=== PATIENT | female | born 1950 | race Caucasian/White ===

== ENCOUNTER → 2022-06-18 | Outpatient (CLI) | payer MEDICARE | END | disposition home or self-care (01) | LOC: RAH 14:16 | PROVIDERS: ATTEND Surgery Vascular Surgery | DX: C34.91 Malignant neoplasm of unspecified part of right bronchus or lung (principal) | CPT/HCPCS: 71250 ==

== ENCOUNTER 2024-07-07 09:52 | Inpatient (IN) | payer MEDICARE ==
[~2024-07-07] VITALS: Ht 165.1 cm; Wt 86.4 kg
--- NOTE | 2024-07-07 10:15 | EKG ---
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
[2024-07-07 11:02] LABS: BASOPHILS # (AUTO) 0.04 K/uL (0.00-0.20); BASOPHILS % (AUTO) 0.8 % (0.0-5.0); EOSINOPHILS # (AUTO) 0.16 K/uL (0.00-0.70); HEMATOCRIT 40.6 % (36-48); IMMATURE GRANULOCYTE ABSOLUTE 0.02 K/uL (0-1); LYMPHOCYTES # (AUTO) 0.5 K/uL (1.0-4.8); LYMPHOCYTES % (AUTO) 9.1 % (21.0-51.0); MEAN CORPUSCULAR HEMOGLOBIN 33.5 pg (27.0-33.0); MEAN CORPUSCULAR HGB CONC 33.3 g/dL (32.0-36.0); MEAN CORPUSCULAR VOLUME 100.7 fL (79-99); MONOCYTES # (AUTO) 0.5 K/uL (0.1-1.0); MONOCYTES % (AUTO) 8.6 % (3.0-13.0); NEUTROPHILS # (AUTO) 4.1 K/uL (1.8-7.7); NEUTROPHILS % (AUTO) 78.1 % (40.0-77.0); PLATELET COUNT (AUTO) 319 K/uL (130-400); RED BLOOD CELL COUNT(AUTO) 4.03 MIL/uL (4.00-5.50); WHITE BLOOD COUNT (AUTO) 5.3 K/uL (4.8-10.8)
--- NOTE | 2024-07-07 11:05 | HMCIMG ---
CT HEAD/BRAIN W/O CONTRAST HISTORY: Altered mental status COMPARISON: None TECHNIQUE: Multiple sequential axial images of the head were obtained from the base of the skull through vertex. Patient was not given contrast through intravenous route. FINDINGS: The ventricles and extraventricular CSF spaces are dilated consistent with cerebral atrophy. Nonspecific white matter changes seen. There is no midline shift, mass effect or herniation. No acute intracranial bleed is seen. Visualized portion of the paranasal sinuses are grossly within normal limits. IMPRESSION: 1. No acute intracranial bleed is seen. 2. Atrophy with white matter changes. CT was performed with one or more following dose reduction techniques: automated exposure control, adjustment of the mA and kv according to patient's size, or use of a iterative reconstruction technique.
[2024-07-07 11:14] LABS: CREATININE 0.8 mg/dL (0.5-1.0); POTASSIUM 3.6 mmol/L (3.5-5.1)
[2024-07-07 11:15] LABS: INR 0.97 (0.85-1.15); PROTHROMBIN TIME 10.9 SEC (9.6-11.6)
[2024-07-07 11:17] LABS: PARTIAL THROMBOPLASTIN TIME 28.6 SEC (26.3-35.5)
[2024-07-07 11:19] LABS: MAGNESIUM 2.3 mg/dL (1.80-2.40)
--- NOTE | 2024-07-07 11:21 | HMCIMG ---
CHEST 1VW HISTORY: Weakness COMPARISON: None FINDINGS: A frontal projection of the chest was obtained. Right upper lung pulmonary infiltrates are seen. There are interstitial fibrosis. Right perihilar subsegmental atelectasis changes are seen. The heart is borderline enlarged. All the lines and tubes are again seen in place. No evidence of aortic calcification is seen. IMPRESSION: 1. Findings as described above.
--- NOTE | 2024-07-07 11:41 | NUR ---
PT MADE AWARE OF UA PENDING, UA CUP PROVIDED , PT ASSISTED TO RR BUT UNABLE TO PROVIDE SAMPLE
[2024-07-07 11:58] LABS: B-TYPE NATRIURETIC PEPTIDE 50 pg/mL (0-100)
--- NOTE | 2024-07-07 13:09 | ERN ---
General Chief Complaint: Altered Mental Status Stated Complaint: AMS Time Seen by MD: 09:56 Source: patient History of Present Illness Initial Comments PATIENT IS A 73-YEAR-OLD FEMALE COMING IN TO BE EVALUATED FOR ALTERED MENTAL STATUS. PER FAMILY MEMBERS PATIENT STARTED HAVING BOUTS OF FORGETFULNESS FOR ABOUT ONE WEEK. DAUGHTER WAS CONCERNED BECAUSE PATIENT HAS A NEOPLASTIC HISTORY. Allergies: Coded Allergies: iodine (Unverified Allergy, Unknown, 07/07/24) Past Medical History Past Medical History: Hypertension Medical History Other: RIGHT LUNG CANCER Past Surgical History: Other Surgical History Other: CAROTID STENT ROS Dictation CONSTITUTIONAL: NO CHILLS, NO FEVER, NO WEAKNESS, NO DIAPHORESIS, NO MALAISE. HEAD/FACE: NO SIGNS OF TRAUMA. EENT: NO EYE PAIN, NO BLURRED VISION, NO TEARING, NO DOUBLE VISION, NO EAR PAIN, NO EAR DISCHARGE, NO NOSE PAIN, NO NASAL CONGESTION, NO THROAT PAIN, NO THROAT SWELLING, NO MOUTH PAIN. RESPIRATORY: NO COUGH, NO ORTHOPNEA, NO SOB, NO STRIDOR, NO WHEEZING. CARDIOVASCULAR: NO CHEST PAIN, NO EDEMA, NO PALPITATIONS, NO SYNCOPE. GASTROINTESTINAL/ABDOMINAL: NO ABDOMINAL PAIN, NO CONSTIPATION, NO DIARRHEA, NO NAUSEA, NO VOMITING. GENITOURINARY: NO ABNORMAL DISCHARGE, NO DYSURIA, NO FREQUENT URINATION, NO HEMATURIA. NO COMPLAINTS OF PAIN IN THE GENITALS. MUSCULOSKELETAL: NO BACK PAIN, NO GOUT, NO JOINT PAIN, NO JOINT SWELLING, NO MUSCLE PAIN, NO MUSCLE STIFFNESS, NO NECK PAIN. INTEGUMENTARY: NO CHANGE IN COLOR, NO CHANGE IN HAIR/NAILS, NO DRYNESS, NO LESION, NO LUMPS, NO RASH. NEUROLOGICAL/PSYCH: NO ANXIETY, NOT DEPRESSED, NO EMOTIONAL PROBLEM, NO HEADACHE, NO NUMBNESS, NO PRE-EXISTING DEFICIT, NO HISTORY OF SEIZURES, NO TREMORS, NO WEAKNESS. HEMATOLOGIC/LYMPHATIC: NOT ANEMIC, NO HISTORY OF BLOOD CLOTS, NO APPARENT BLEEDING, NO BRUISING, GLANDS NOT SWOLLEN. ALL SYSTEMS NEGATIVE, EXCEPT NOTED. Physical Exam Physical Exam Dictation VITAL SIGNS: REVIEWED. GENERAL APPEARANCE: ALERT, ORIENTED X3, NO ACUTE DISTRESS, OBESE. HEAD AND FACE: NON-TRAUMATIC. EYES: PERRL, PINK CONJUNCTIVAS, EYELID NO TRAUMA, ANTERIOR CHAMBER CLEAR. EARS: PINNAS INTACT AND NO SIGNS OF TRAUMA OR ERYTHEMA. EAR CANALS CLEAR AND NO DISCHARGE. TMS NO ERYTHEMA. NOSE: NO DISCHARGE, NO BLEEDING. OROPHARYNX: MOUTH NORMAL, TEETH NO CARIES, TONGUE PINK. PHARYNX CLEAR, NO ERYTHEMA. TONSILS NO EXUDATES, NO ABSCESSES NOTED. MUCOUS MEMBRANE MOIST. NECK: SUPPLE, NON-TENDER, NO THYROMEGALY, NO MASSES, NO JVD, NO BRUITS. BREAST: DEFERRED. CHEST: NO TENDERNESS, NO CREPITUS, NO PARADOXICAL MOVEMENT, NO RETRACTIONS. LUNGS: CLEAR, WELL-VENTILATED, SYMMETRIC, NO RALES, NO WHEEZING, NO RHONCHI, NO STRIDOR, GOOD BREATH SOUNDS BILATERALLY. HEART: REGULAR RATE, REGULAR RHYTHM, NO MURMUR, NO GALLOPS. VASCULAR: NO PERIPHERAL EDEMA. ABDOMEN: SOFT, POSITIVE BOWEL SOUNDS, NONDISTENDED, NO GUARDING, NONTENDER, NO REBOUND, NO MASSES NO HEPATOMEGALY, NO SPLENOMEGALY, NO DURAN'S SIGN, NO HERNIAS. RECTAL: DEFERRED. GENITAL: DEFERRED. NEUROLOGICAL: NORMAL SPEECH, GROSS MOTOR FUNCTION INTACT, GROSS SENSORY FUNCTION INTACT. MUSCULOSKELETAL: NECK NONTENDER, FULL RANGE OF MOTION, BACK NONTENDER, FULL RANGE OF MOTION. EXTREMITIES: NONTENDER, FULL RANGE OF MOTION. SKIN: COLOR PINK, DRY, NO TURGOR, NO RASH, NO LACERATIONS, NO ABRASIONS, NO CONTUSIONS. LYMPHATICS: DEFERRED. Results Laboratory and Microbiology Lab and Micro Result Laboratory Tests Test 07/07/24 10:39 07/07/24 12:30 White Blood Count 5.3 K/uL (4.8-10.8) Red Blood Count 4.03 MIL/uL (4.00-5.50) Hemoglobin 13.5 g/dL (12.0-16.0) Hematocrit 40.6 % (36-48) Mean Corpuscular Volume 100.7 fL (79-99) H Mean Corpuscular Hemoglobin 33.5 pg (27.0-33.0) H Mean Corpuscular Hemoglobin Concent 33.3 g/dL (32.0-36.0) Red Cell Distribution Width 14.0 % (11.0-15.5) Platelet Count 319 K/uL (130-400) Mean Platelet Volume 9.7 fL (7.5-10.5) Immature Granulocyte % (Auto) 0.4 % (0-1) Neutrophils (%) (Auto) 78.1 % (40.0-77.0) H Lymphocytes (%) (Auto) 9.1 % (21.0-51.0) L Monocytes (%) (Auto) 8.6 % (3.0-13.0) Eosinophils (%) (Auto) 3.0 % (0.0-8.0) Basophils (%) (Auto) 0.8 % (0.0-5.0) Neutrophils # (Auto) 4.1 K/uL (1.8-7.7) Lymphocytes # (Auto) 0.5 K/uL (1.0-4.8) L Monocytes # (Auto) 0.5 K/uL (0.1-1.0) Eosinophils # (Auto) 0.16 K/uL (0.00-0.70) Basophils # (Auto) 0.04 K/uL (0.00-0.20) Absolute Immature Granulocyte (auto 0.02 K/uL (0-1) Nucleated Red Blood Cells 0.0 % (0.0-0.19) White Cell Morphology Comment See comments Prothrombin Time 10.9 SEC (9.6-11.6) Prothromb Time International Ratio 0.97 (0.85-1.15) Activated Partial Thromboplast Time 28.6 SEC (26.3-35.5) Sodium Level 139 mmol/L (136-145) Potassium Level 3.6 mmol/L (3.5-5.1) Chloride Level 102 mmol/L (101-111) Carbon Dioxide Level 31 mmol/L (21-32) Blood Urea Nitrogen 6 mg/dL (7-18) L Creatinine 0.8 mg/dL (0.5-1.0) Glomerular Filtration Rate Calc 77 mL/min (>90) Random Glucose 128 mg/dL (70-105) H Total Calcium 9.1 mg/dL (8.5-10.1) Magnesium Level 2.30 mg/dL (1.80-2.40) Total Creatine Kinase 41 U/L (21-232) Troponin I High Sensitivity 5 ng/L (4-50) B-Type Natriuretic Peptide 50 pg/mL (0-100) Urine Color LIGHT-YELLOW (YELLOW) Urine Appearance CLEAR (CLEAR) Urine pH 5.5 (5.0-8.0) Urine Specific Daphne 1.007 (1.001-1.031) Urine Protein NEGATIVE mg/dL (NEGATIVE) Urine Glucose (UA) NEGATIVE mg/dL (NEGATIVE) Urine Ketones 10 mg/dL (NEGATIVE) H Urine Occult Blood +- (TRACE) (NEGATIVE) H Urine Nitrate NEGATIVE (NEGATIVE) Urine Bilirubin NEGATIVE mg/dL (NEGATIVE) Urine Urobilinogen 0.2 mg/dL (0.2-1.0) Urine Leukocyte Esterase NEGATIVE Jennifer/uL Urine RBC 0-1 /HPF (0-1) Urine WBC 2-5 /HPF (0-1) H Urine Squamous Epithelial Cells RARE /HPF (0-2) Urine Bacteria RARE /HPF (None Seen) Urine Opiates Screen NEGATIVE (NEGATIVE) Urine Barbiturates Screen NEGATIVE (NEGATIVE) Urine Phencyclidine Screen NEGATIVE (NEGATIVE) Urine Amphetamines Screen NEGATIVE (NEGATIVE) Urine Benzodiazepines Screen NEGATIVE (NEGATIVE) Urine Cocaine Screen NEGATIVE (NEGATIVE) Urine Marijuana (THC) Screen NEGATIVE (NEGATIVE) Labs Reviewed?: Yes EKG/XRAY/US/CT/MRI EKG Comment 07/07/2024 TIME 10:03 A.M. VENTRICULAR RATE 73 SINUS RHYTHM DC [address] WAVE ELEVATION OR DEPRESSION X-RAY Comment [address] [place] [address] [id number] IMAGING REPORT Signed PATIENT: HOSSEIN YUAN MR#: [id number] : 1950 SEX: F AGE: 73 LOCATION: [facility] ORDER 1006 STATUS: [facility] REPORT#: [id number] SERVICE 1004 REASON: WEAKNESS ORDERING PHYSICIAN: NADYA GOULD MD PROCEDURE: CXR1VW - CHEST 1VW CHEST 1VW HISTORY: Weakness COMPARISON: None FINDINGS: A frontal projection of the chest was obtained. Right upper lung pulmonary infiltrates are seen. There are interstitial fibrosis. Right perihilar subsegmental atelectasis changes are seen. The heart is borderline enlarged. All the lines and tubes are again seen in place. No evidence of aortic calcification is seen. IMPRESSION: 1. Findings as described above. DICTATED BY: MARSHAL TATUM MD DATE: 07/07/24 1118 ELECTRONICALLY SIGNED BY: MARSHAL TATUM MD DATE: 07/07/[address] Scan Comment [address] [id number] IMAGING REPORT Signed PATIENT: HOSSEIN YUAN MR#: [id number] : 1950 SEX: F AGE: 73 LOCATION: [facility] ORDER 18 STATUS: REG ER REPORT#: [id number] SERVICE 17 REASON: AMS ORDERING PHYSICIAN: NADYA GOULD MD PROCEDURE: HEAD WO - CT HEAD/BRAIN W/O CONTRAST CT HEAD/BRAIN W/O CONTRAST HISTORY: Altered mental status COMPARISON: None TECHNIQUE: Multiple sequential axial images of the head were obtained from the base of the skull through vertex. Patient was not given contrast through intravenous route. FINDINGS: The ventricles and extraventricular CSF spaces are dilated consistent with cerebral atrophy. Nonspecific white matter changes seen. There is no midline shift, mass effect or herniation. No acute intracranial bleed is seen. Visualized portion of the paranasal sinuses are grossly within normal limits. IMPRESSION: 1. No acute intracranial bleed is seen. 2. Atrophy with white matter changes. CT was performed with one or more following dose reduction techniques: automated exposure control, adjustment of the mA and kv according to patient's size, or use of a iterative reconstruction technique. DICTATED BY: MARSHAL TATUM MD DATE: 07/07/241100 ELECTRONICALLY SIGNED BY: MARSHAL TATUM MD DATE: 07/07/241104 [facility] MDM: DIFFERENTIAL DIAGNOSIS: RIGHT LUNG PNEUMONIA, ALTERED MENTAL STATUS, ACUTE PSYCHOSIS RATIONALE: TESTS CONSIDERED AND ORDERED SECONDARY TO SHARED DECISION MAKING INCLUDE: LABS, ECG AND RADIOLOGY PREVIOUS OUTSIDE RECORDS REVIEWED: OLD ER VISITS. RISK OF COMPLICATION AND/OR MORBIDITY OR MORTALITY OF PATIENT MANAGEMENT: NONE MEDICATIONS-PER MEDICATION RECONCILIATION NEED FOR HOSPITALIZATION: PATIENT DOES MEET CRITERIA FOR HOSPITALIZATION. NEED FOR EMERGENCY MAJOR/MINOR SURGERY: NO THERE ARE NO SOCIAL CONCERNS WITH THIS PATIENT. PRESCRIPTION DRUG MANAGEMENT PRESCRIPTIONS WILL INCLUDE SYMPTOMATIC CARE PATIENT'S PRIOR EXTERNAL MEDICAL RECORDS FROM OTHER ER VISITS WERE REVIEWED BY ME INDICATED. PRIOR TESTING AND RESULTS FROM PREVIOUS VISITS WERE REVIEWED. PRIOR TESTS WERE TAKEN INTO ACCOUNT WITH MEDICAL DECISION MAKING AND RESOURCE UTILIZATION, INDEPENDENT HISTORIAN/HISTORIANS WERE USED TO OBTAIN COMPLETE MEDICAL HISTORY. I INDEPENDENTLY INTERPRETED THE TEST THAT WERE PERFORMED, RESULTS WERE REVIEWED BY ME AND CONSIDERED FINDINGS ON RADIOLOGY IF ORDERED. MEDICAL MANAGEMENT AND EXAMINATION INTERPRETATION DISCUSSIONS WERE HAD BY ME WITH OTHER QUALIFIED HEALTHCARE PROFESSIONALS INDICATED FOR THE PATIENT'S CARE. PATIENT WILL BE ADMITTED UNDER THE CARE OF HOSPITALIST GROUP FOR ONGOING MANAGEMENT OF ACUTE PSYCHOSIS. ED Course Orders Procedure Category Date Status Time Cbc With Differential LAB 07/07/24 Complete 10:04 Prothrombin Time With LAB 07/07/24 Complete INR 10:04 B-Type Natriuretic LAB 07/07/24 Complete Peptide 10:04 Chest 1vw RAD 07/07/24 Resulted 10:04 12 Lead Ekg Tracing- EKG 07/07/24 Complete Technical 10:04 Magnesium LAB 07/07/24 Complete 10:04 Creatine Kinase, Total LAB 07/07/24 Complete 10:04 Troponin I High LAB 07/07/24 Complete Sensitivity 10:04 Urinalysis Profile LAB 07/07/24 Complete 10:04 Partial LAB 07/07/24 Complete Thromboplastin Time 10:04 Basic Metabolic Panel LAB 07/07/24 Complete 10:04 Drug Screen Urine LAB 07/07/24 Complete 10:04 Ct Head/Brain W/O CT 07/07/24 Resulted Contrast 10:18 Vital Signs Date Time Temp Pulse Resp B/P (MAP) Pulse Ox O2 Delivery O2 Flow Rate FiO2 07/07/24 09:56 98.1 92 18 166/83 97 Room Air DX & DISP Disposition: Inpatient Decision to Admit Time: 14:05 Departure Impression: Primary Impression: Psychosis Additional Impression: Pneumonia involving right lung Condition: Stable Referrals: NONE (PCP) NADYA GOULD MD Jul 07, 2024 13:09
[2024-07-07 13:33] LABS: APPEARANCE,URINE CLEAR (CLEAR); BILIRUBIN,URINE NEGATIVE (NEGATIVE); COLOR,URINE LIGHT-YELLOW (YELLOW); GLUCOSE, URINE (UA) NEGATIVE (NEGATIVE); KETONES,URINE 10 mg/dL (NEGATIVE); LEUKOCYTE ESTERASE ,URINE NEGATIVE Leu/uL (NEGATIVE); NITRATE,URINE NEGATIVE (NEGATIVE); PH,URINE 5.5 (5.0-8.0); PROTEIN,URINE NEGATIVE (NEGATIVE); UROBILINOGEN,URINE 0.2 mg/dL (0.2-1.0)
[2024-07-07 13:36] LABS: ADD UA MICROSCOPIC YES
[2024-07-07 13:43] LABS: AMPHET/METH SCREEN,URINE NEGATIVE (NEGATIVE); BARBITURATE SCREEN, URINE NEGATIVE (NEGATIVE); BENZODIAZEPINES SCREEN,URINE NEGATIVE (NEGATIVE); CANNABINOID SCREEN,URINE NEGATIVE (NEGATIVE); COCAINE SCREEN,URINE NEGATIVE (NEGATIVE); OPIATE SCREEN,URINE NEGATIVE (NEGATIVE); PHENCYCLIDINE SCREEN,URINE NEGATIVE (NEGATIVE)
[2024-07-07 13:48] LABS: BACTERIA,URINE RARE /HPF (None Seen); RBC,URINE 0-1 /HPF (0-1); SQUAMOUS EPITHELIAL CELL,UR RARE /HPF (0-2)
--- NOTE | 2024-07-07 14:08 | NUR ---
PT DID NOT BEING HOME MEDS, REQUESTING HOME MEDS FROM PATIENT, STATES WILL ASK FAMILY TO BRING
--- NOTE | 2024-07-07 16:36 | NUR ---
PT JUST NOW PLACED IN MY ED BED 11
--- NOTE | 2024-07-07 16:40 | NUR ---
REPORT RECEIVED FROM VILMA Woody RN
--- NOTE | 2024-07-07 17:36 | NUR ---
PT SET UP ON EDGE OF BED W/HER PM MEAL TRAY
--- NOTE | 2024-07-07 17:49 | HP ---
[facility] HISTORY AND PHYSICAL Date of Service: Jul 07, 2024 Time of Service: 17:49 HISTORY OF PRESENT ILLNESS: [ The patient is a 73 year old female with history of cancer and psychosis presents for evaluation of altered mental status. According to family members, she has experienced bouts of forgetfulness over the past week. 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 Currently patient denies cough, dyspnea, hemomptysis, unexplained weight loss, night sweats, fever, fatigue or lymphadenopathy. Inital lab workup was unremarkable except for BUN of 6 and glucose of 128. Head CT showed no acute intracranial bleed; revealed atrophy with white matter. CXR revealed upper lung pulmonary infiltrates. Patient will be admitted under hospitalist of further treatment and evaluation. ] REVIEW OF SYSTEMS CONSTITUTIONAL: Denies fevers, chills, or night sweats. No unintentional weight loss reported. NEUROLOGICAL: Denies headache, amaurosis fugax, motor weakness, sensory deficit, vertigo/spinning sensation, gait abnormalities, or tremors. ENT: No hearing loss, otalgia, otorrhea, rhinitis, rhinorrhea, hoarseness, or sore throat. CARDIOVASCULAR: Denies any exertional angina, dyspnea on exertion, orthopnea, paroxysmal nocturnal dyspnea, palpitations, life-threatening arrhythmias, claudication. PULMONARY: Denies any shortness of breath, cough, phlegm/sputum, hemoptysis, pleuritic chest pain. SLEEP: Denies morning headaches, daytime somnolence or napping. Denies difficulty falling asleep, staying asleep, waking from sleep. Denies knowledge of snoring. GASTROINTESTINAL: Denies any type of dysphagia to either liquids or solids. Denies nausea, vomiting, pyrosis, early satiety, abdominal pain, diarrhea, constipation, or changes in stool consistency or caliber. Denies coffee-ground emesis, hematemesis, hematochezia, or melanotic stools. GENITOURINARY: Denies frequency, urgency, nocturia, hematuria or incontinence (Storage/Irritative symptoms.) Low urinary stream, straining to void, urinary intermittency or hesitancy, splitting of the voiding stream, terminal dribbling. ENDOCRINOLOGIC: Denies polyuria, polydipsia, polyphagia or heat/cold intolerances. HEMATOLOGIC: Denies thrombophilia/previous clots, or coagulopathy/bleeding disorders. ONCOLOGIC: Denies personal history of malignancy. DERMATOLOGIC: Denies rashes or pruritus. PSYCHIATRIC: Denies any suicidal or homicidal ideation. Denies hallucinations. PAST MEDICAL HISTORY: [ Right lung cancer Hypertension Carotid artery disease ] PAST SURGICAL HISTORY: [ Carotid stent ] PAST SOCIAL HISTORY: [ Patient reports he was a smoker for approximately 57 years smoking 1 to 2 packs, but quit smoking when she was diagnosed with lung cancer. Patient lives with her at home. She ambulates without assistance and is independent with ADLs. ] FAMILY HISTORY: [ Non-reported ] Coded Allergies: iodine (Unverified Allergy, Unknown, 07/07/24) PHYSICAL EXAM GENERAL APPEARANCE: The patient is awake, alert, and oriented, in no acute cardiopulmonary distress. NEUROLOGICAL: Cranial nerves II-XII grossly intact. Motor is 5/5 in bilateral upper and lower extremities proximal to distal. No sensory deficits. HEENT: Face is symmetric. Pupils are equal and reactive. Extraocular movements are intact. NECK: Supple. No JVD. No thyromegaly. No submental, submandibular, pre-/po stauricular, occipital or supraclavicular lymphadenopathy. CHEST: Normal chest expansion. No Telemetry. LUNGS: Absence of any rales, rhonchi or any wheezing. CARDIOVASCULAR: Regular. S1 and S2 normal. No appreciable rubs, murmurs or gallops. ABDOMEN: Soft, nontender, and nondistended. There is no rebound, voluntary guarding, or rigidity. : Deferred. No West. EXTREMITIES: Non-edematous and not cyanotic. No clubbing. Good capillary refill. SKIN: No skin breakdown. Vital Sign (Last 24 Hours) 07/07/24 16:18 Temp 98.8 Pulse 73 Resp 20 B/P (MAP) 136/53 Pulse Ox 94 O2 Delivery Room Air* O2 Flow Rate 0 FiO2 21 LABS: Laboratory: Test 07/07/24 12:30 07/07/24 10:39 Range/Units Urine Color LIGHT-YELLOW YELLOW Urine Appearance CLEAR CLEAR Urine pH 5.5 5.0-8.0 Urine Specific [place] 1.007 1.001-1.031 Urine Protein NEGATIVE NEGATIVE mg/dL Urine Glucose (UA) NEGATIVE NEGATIVE mg/dL Urine Ketones 10 H NEGATIVE mg/dL Urine Occult Blood +- (TRACE) H NEGATIVE Urine Nitrate NEGATIVE NEGATIVE Urine Bilirubin NEGATIVE NEGATIVE mg/dL Urine Urobilinogen 0.2 0.2-1.0 mg/dL Urine Leukocyte Esterase NEGATIVE NEGATIVE Jennifer/uL Urine RBC 0-1 0-1 /HPF Urine WBC 2-5 H 0-1 /HPF Urine Squamous Epithelial Cells RARE 0-2 /HPF Urine Bacteria RARE None Seen /HPF Urine Opiates Screen NEGATIVE NEGATIVE Urine Barbiturates Screen NEGATIVE NEGATIVE Urine Phencyclidine Screen NEGATIVE NEGATIVE Urine Amphetamines Screen NEGATIVE NEGATIVE Urine Benzodiazepines Screen NEGATIVE NEGATIVE Urine Cocaine Screen NEGATIVE NEGATIVE Urine Marijuana (THC) Screen NEGATIVE NEGATIVE White Blood Count 5.3 4.8-10.8 K/uL Red Blood Count 4.03 4.00-5.50 MIL/uL Hemoglobin 13.5 12.0-16.0 g/dL Hematocrit 40.6 36-48 % Mean Corpuscular Volume 100.7 H 79-99 fL Mean Corpuscular Hemoglobin 33.5 H 27.0-33.0 pg Mean Corpuscular Hemoglobin Concent 33.3 32.0-36.0 g/dL Red Cell Distribution Width 14.0 11.0-15.5 % Platelet Count 319 130-400 K/uL Mean Platelet Volume 9.7 7.5-10.5 fL Immature Granulocyte % (Auto) 0.4 0-1 % Neutrophils (%) (Auto) 78.1 H 40.0-77.0 % Lymphocytes (%) (Auto) 9.1 L 21.0-51.0 % Monocytes (%) (Auto) 8.6 3.0-13.0 % Eosinophils (%) (Auto) 3.0 0.0-8.0 % Basophils (%) (Auto) 0.8 0.0-5.0 % Neutrophils # (Auto) 4.1 1.8-7.7 K/uL Lymphocytes # (Auto) 0.5 L 1.0-4.8 K/uL Monocytes # (Auto) 0.5 0.1-1.0 K/uL Eosinophils # (Auto) 0.16 0.00-0.70 K/uL Basophils # (Auto) 0.04 0.00-0.20 K/uL Absolute Immature Granulocyte (auto 0.02 0-1 K/uL Nucleated Red Blood Cells 0.0 0.0-0.19 % White Cell Morphology Comment See comments Prothrombin Time 10.9 9.6-11.6 SEC Prothromb Time International Ratio 0.97 0.85-1.15 Activated Partial Thromboplast Time 28.6 26.3-35.5 SEC Sodium Level 139 136-145 mmol/L Potassium Level 3.6 3.5-5.1 mmol/L Chloride Level 102 101-111 mmol/L Carbon Dioxide Level 31 21-32 mmol/L Blood Urea Nitrogen 6 L 7-18 mg/dL Creatinine 0.8 0.5-1.0 mg/dL Glomerular Filtration Rate Calc 77 >90 mL/min Random Glucose 128 H 70-105 mg/dL Total Calcium 9.1 8.5-10.1 mg/dL Magnesium Level 2.30 1.80-2.40 mg/dL Total Creatine Kinase 41 21-232 U/L Troponin I High Sensitivity 5 4-50 ng/L B-Type Natriuretic Peptide 50 0-100 pg/mL DIAGNOSTICS / RADIOLOGY: [[place] [address] [place] [address] [id number] IMAGING REPORT Signed PATIENT: HOSSEIN YUAN MR#: [id number] : 1950 SEX: F AGE: 73 LOCATION: [facility] ORDER 100 STATUS: [facility] REPORT#: [id number] SERVICE 1004 REASON: WEAKNESS ORDERING PHYSICIAN: NADYA GOULD MD PROCEDURE: CXR1VW - CHEST 1VW CHEST 1VW HISTORY: Weakness COMPARISON: None FINDINGS: A frontal projection of the chest was obtained. Right upper lung pulmonary infiltrates are seen. There are interstitial fibrosis. Right perihilar subsegmental atelectasis changes are seen. The heart is borderline enlarged. All the lines and tubes are again seen in place. No evidence of aortic calcification is seen. IMPRESSION: 1. Findings as described above. DICTATED BY: MARSHAL TATUM MD DATE: 07/07/241117 ELECTRONICALLY SIGNED BY: MARSHAL TATUM MD DATE: 07/07/24 1121 [facility] [address] [place] [id number] IMAGING REPORT Signed PATIENT: HOSSEIN YUAN MR#: [id number] : 1950 SEX: F AGE: 73 LOCATION: [facility] ORDER 18 STATUS: [facility] ER REPORT#: [id number] SERVICE REASON: AMS ORDERING PHYSICIAN: NADYA GOULD MD PROCEDURE: HEAD WO - CT HEAD/BRAIN W/O CONTRAST CT HEAD/BRAIN W/O CONTRAST HISTORY: Altered mental status COMPARISON: None TECHNIQUE: Multiple sequential axial images of the head were obtained from the base of the skull through vertex. Patient was not given contrast through intravenous route. FINDINGS: The ventricles and extraventricular CSF spaces are dilated consistent with cerebral atrophy. Nonspecific white matter changes seen. There is no midline shift, mass effect or herniation. No acute intracranial bleed is seen. Visualized portion of the paranasal sinuses are grossly within normal limits. IMPRESSION: 1. No acute intracranial bleed is seen. 2. Atrophy with white matter changes. CT was performed with one or more following dose reduction techniques: automated exposure control, adjustment of the mA and kv according to patient's size, or use of a iterative reconstruction technique. DICTATED BY: MARSHAL TATUM MD DATE: 07/07/24 1101 ] ASSESSMENT: [ Right lung pneumonia Altered mental status, psychosis Hypertension ] PLAN: [ Admit to medical/surgical Diagnosis community-acquired pneumonia Condition: Fair Vitals: Every 6 hours Allergies:Iodine Activity: Bed rest with bathroom privileges Nursing: Titrate supplemental oxygen to keep O2 sats above 92% Diet: Heart Healthy IV fluids: Normal saline at 100 mL an hour 2 L started on IV Rocephin and azithromycin to cover for typical community-acquired pneumonia Request blood cultures, sputum cultures, respiratory PCR, for diagnostic of etiologic cause of pneumonia. Start on nebulization treatments with DuoNeb for bronchospasms and airway secressions, for increased pulmonary toileting Start on Robitussin with codeine every 6 hours when necessary for cough suppression Start labetalol 10 mg IV Q6H as needed for systolic bp greater than 160. Please list and update home medication. Start hypertensive medications now. Add when necessary meds for nausea, vomiting, pain, constipation, insomnia. Continue Lovenox and famotidine for DVT and GI prophylaxis. Current Medications Medications (Trade) Dose Ordered Sig/Ata Route PRN Reason Start Time Stop Time Status Last Admin Acetaminophen (TYLenol 325MG TAB) 650 mg Q6H PRN PO TEMPERATURE GREATER THAN 101.5 07/07/24 18:00 08/06/24 17:59 Acetaminophen (TYLenol 325MG TAB) 650 mg Q4H PRN PO MILD PAIN (1-3) 07/07/24 18:00 08/06/24 17:59 Ondansetron HCl (zoFRAN 4MG INJ) 4 mg Q6H PRN IV NAUSEA/VOMITING 07/07/24 18:00 08/06/24 17:59 Enoxaparin Sodium (Lovenox) 30 mg DAILY SQ 07/08/24 09:00 08/07/24 08:59 Hydromorphone HCl (DiLAUDid 1MG INJ) 0.5 mg Q4H PRN IV SEVERE PAIN (7-10) 07/07/24 18:00 07/12/24 17:59 Famotidine (Pepcid 20mg Vial) 20 mg DAILY IV 07/08/24 09:00 08/07/24 08:59 Acetaminophen/ Codeine Phosphate (TYLenol-coDEINE TAB) 1 tab Q6H PRN PO MODERATE PAIN (4-6) 07/07/24 18:00 08/06/24 17:59 Azithromycin 250 ml @ 250 mls/hr Q24H IVPB 07/07/24 18:00 07/17/24 17:59 07/07/24 21:35 Which the following were discussed? Hospice care- yes ___no _x__ Therapeutic options- yes___no_x__ Advanced directives-- yes_x__no___ Other discussions- NO Discussed with whom? ___patient Voluntary nature of this service was explained to the patient? Yes__x__ no____ Conversation started:__1299___ Conversation ended:___0___ ] ATTESTATION BY PHYSICIAN I have seen and examined the patient. I reviewed the documentation, medical decision making, and treatment plan as noted by the mid-level provider above. I agree with the findings and plan of care. UMU COOPER MD, MARIA I [facility] Jul 07, 2024 17:49
[2024-07-07] MEDS ORDERED: acetaMINOPHEN 325 MG TAB PO PRN ×2 (18:00)
[2024-07-07] MEDS ORDERED: ondanSETRON 4MG INJ IV PRN (18:00)
[2024-07-07] MEDS ORDERED: acetaMINOPHEN WITH coDEINE 1 TAB TAB PO PRN ×2 (18:00)
[2024-07-07] MEDS ORDERED: hydroMORPHone 1 MG INJ IV PRN (18:00)
--- NOTE | 2024-07-07 18:00 | NUR ---
NADYA ELECTRICAL ENGINEERING DIRECTOR HERE TO SEE THE PT
--- NOTE | 2024-07-07 19:07 | NUR ---
REPORT ENDORSED TO ANTOINE CHACON
[2024-07-07] MEDS: AZITHROMYCIN 500MG+NS 250ML 250 ML IVPB SCH (21:35)
[2024-07-07] MEDS ORDERED: LAbetaLOL 20MG SYG IV PRN (22:00)
[2024-07-07] MEDS ORDERED: MULT-1203 PO (22:05)
[2024-07-07 22:13] LABS: HEMOGLOBIN A1C 6.1 % (4.0-6.0)
[2024-07-07] MEDS: SODIUM CHLORIDE 3% FOR INHALATION 4 ML/AMP VIAL.NEB IH ONE (22:58)
[2024-07-08] MEDS: cefTRIAXone 1G VIAL IVPB SCH (02:07)
[2024-07-08] MEDS: SODIUM CHLORIDE 3% FOR INHALATION 4 ML/AMP VIAL.NEB IH ONE (06:00)
[2024-07-08 06:45] LABS: BASOPHILS # (AUTO) 0.04 K/uL (0.00-0.20); BASOPHILS % (AUTO) 0.9 % (0.0-5.0); EOSINOPHILS # (AUTO) 0.22 K/uL (0.00-0.70); EOSINOPHILS % (AUTO) 5.1 % (0.0-8.0); HEMATOCRIT 35.5 % (36-48); IMMATURE GRANULOCYTE ABSOLUTE 0.03 K/uL (0-1); LYMPHOCYTES # (AUTO) 0.5 K/uL (1.0-4.8); LYMPHOCYTES % (AUTO) 11.8 % (21.0-51.0); MEAN CORPUSCULAR HEMOGLOBIN 33.1 pg (27.0-33.0); MEAN CORPUSCULAR HGB CONC 32.7 g/dL (32.0-36.0); MEAN CORPUSCULAR VOLUME 101.4 fL (79-99); MONOCYTES # (AUTO) 0.6 K/uL (0.1-1.0); MONOCYTES % (AUTO) 13.2 % (3.0-13.0); NEUTROPHILS % (AUTO) 68.3 % (40.0-77.0); PLATELET COUNT (AUTO) 287 K/uL (130-400); RED CELL DISTRIBUTION WIDTH 14.3 % (11.0-15.5); WHITE BLOOD COUNT (AUTO) 4.3 K/uL (4.8-10.8)
[2024-07-08 07:07] LABS: ALBUMIN 2.9 g/dL (3.5-5.0); BILIRUBIN,TOTAL 0.4 mg/dL (0.2-1.0); CREATININE 0.8 mg/dL (0.5-1.0); POTASSIUM 3.1 mmol/L (3.5-5.1); TOTAL PROTEIN, SERUM 6.6 g/dL (6.0-8.3)
[2024-07-08 08:19] LABS: ERYTHROCYTE SEDIMENTATION RATE 114 MM/HR (0-30)
--- NOTE | 2024-07-08 08:30 | NUR ---
TAKEN TO RESTROOM VIA WHEELCHAIR.
[2024-07-08] MEDS ORDERED: PoTASSium chl 10% ELIXIR 20MEQ 20 MEQ/15 ML UDCUP PO PRN (10:00)
[2024-07-08] MEDS ORDERED: PoTASSium chloRIDE 20MEQ/100ML 100 ML IV PRN (10:00)
[2024-07-08] MEDS: FAMOTIDINE 20MG VIAL IV SCH (10:21)
[2024-07-08] MEDS: MULTIVITAMIN TABLET PO SCH (10:21)
[2024-07-08] MEDS: ENOXAPARIN SODIUM 30 MG/0.3 ML SQ SCH (10:22)
[2024-07-08] MEDS: LIDOCAINE HCL 1% 20 ML VIAL ONE (11:12)
[2024-07-08] MEDS: PoTASSium chloRIDE 20MEQ ER 20 MEQ ERTAB PO PRN (16:39)
--- NOTE | 2024-07-08 16:39 | PN ---
[facility] PROGRESS NOTE Date of Service: Jul 08, 2024 Time of Service: 16:20 SUBJECTIVE: The patient is a 73 year old female with history of cancer and psychosis presents for evaluation of altered mental status. According to family members, she has experienced bouts of forgetfulness over the past week. 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 Currently patient denies cough, dyspnea, hemomptysis, unexplained weight loss, night sweats, fever, fatigue or lymphadenopathy. Inital lab workup was unremarkable except for BUN of 6 and glucose of 128. Head CT showed no acute intracranial bleed; revealed atrophy with white matter. CXR revealed upper lung pulmonary infiltrates. Patient will be admitted under hospitalist of further treatment and evaluation 07/08/24 He was seen and examined at bedside in ED11. 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 She started going to [facility] [place] [facility] here in [place] and has a PET scan scheduled for 07/11/2024. Currently she denies any chest pain but has cough with sputum, denies shortness of breath or palpitations or dizziness. We will order a CT chest. Her vitals are blood pressure 111/50, pulse rate 63, respiratory rate 20, SpO2 98% on room air and T-max 98.2. Remarkable labs are potassium 3.1, HB A1c 6.1, CRP 98.3 REVIEW OF SYSTEMS CONSTITUTIONAL: Denies fevers, chills, or night sweats. No unintentional weight loss reported. NEUROLOGICAL: Denies headache, amaurosis fugax, motor weakness, sensory deficit, vertigo/spinning sensation, gait abnormalities, or tremors. ENT: No hearing loss, otalgia, otorrhea, rhinitis, rhinorrhea, hoarseness, or sore throat. CARDIOVASCULAR: Denies any exertional angina, dyspnea on exertion, orthopnea, paroxysmal nocturnal dyspnea, palpitations, life-threatening arrhythmias, claudication. PULMONARY: Denies any shortness of breath, cough, phlegm/sputum, hemoptysis, pleuritic chest pain. SLEEP: Denies morning headaches, daytime somnolence or napping. Denies difficulty falling asleep, staying asleep, waking from sleep. Denies knowledge of snoring. GASTROINTESTINAL: Denies any type of dysphagia to either liquids or solids. Denies nausea, vomiting, pyrosis, early satiety, abdominal pain, diarrhea, constipation, or changes in stool consistency or caliber. Denies coffee-ground emesis, hematemesis, hematochezia, or melanotic stools. GENITOURINARY: Denies frequency, urgency, nocturia, hematuria or incontinence (Storage/Irritative symptoms.) Low urinary stream, straining to void, urinary intermittency or hesitancy, splitting of the voiding stream, terminal dribbling. ENDOCRINOLOGIC: Denies polyuria, polydipsia, polyphagia or heat/cold intolerances. HEMATOLOGIC: Denies thrombophilia/previous clots, or coagulopathy/bleeding disorders. ONCOLOGIC: Denies personal history of malignancy. DERMATOLOGIC: Denies rashes or pruritus. PSYCHIATRIC: Denies any suicidal or homicidal ideation. Denies hallucinations. PHYSICAL EXAM GENERAL APPEARANCE: The patient is awake, alert, and oriented, in no acute cardiopulmonary distress. NEUROLOGICAL: Cranial nerves II-XII grossly intact. Motor is 5/5 in bilateral upper and lower extremities proximal to distal. No sensory deficits. HEENT: Face is symmetric. Pupils are equal and reactive. Extraocular movements are intact. NECK: Supple. No JVD. No thyromegaly. No submental, submandibular, pre- /postauricular, occipital or supraclavicular lymphadenopathy. CHEST: Normal chest expansion. No Telemetry. LUNGS: Absence of any rales, rhonchi or any wheezing. CARDIOVASCULAR: Regular. S1 and S2 normal. No appreciable rubs, murmurs or gallops. ABDOMEN: Soft, nontender, and nondistended. There is no rebound, voluntary guarding, or rigidity. : Deferred. No West. EXTREMITIES: Non-edematous and not cyanotic. No clubbing. Good capillary refill. SKIN: No skin breakdown. Vital Signs (last 8hr) Date Time Temp Pulse Resp B/P (MAP) Pulse Ox O2 Delivery O2 Flow Rate FiO2 07/08/24 14:11 69 20 114/54 97 Nasal Cannula* 2 28 LABS: Laboratory: Test 07/08/24 06:18 07/07/24 19:53 07/07/24 12:30 07/07/24 10:39 Range/Units White Blood Count 4.3 L 4.8-10.8 K/uL Red Blood Count 3.50 L 4.00-5.50 MIL/uL Hemoglobin 11.6 L 12.0-16.0 g/dL Hematocrit 35.5 L 36-48 % Mean Corpuscular Volume 101.4 H 79-99 fL Mean Corpuscular Hemoglobin 33.1 H 27.0-33.0 pg Mean Corpuscular Hemoglobin Concent 32.7 32.0-36.0 g/dL Red Cell Distribution Width 14.3 11.0-15.5 % Platelet Count 287 130-400 K/uL Mean Platelet Volume 9.5 7.5-10.5 fL Immature Granulocyte % (Auto) 0.7 0-1 % Neutrophils (%) (Auto) 68.3 40.0-77.0 % Lymphocytes (%) (Auto) 11.8 L 21.0-51.0 % Monocytes (%) (Auto) 13.2 H 3.0-13.0 % Eosinophils (%) (Auto) 5.1 0.0-8.0 % Basophils (%) (Auto) 0.9 0.0-5.0 % Neutrophils # (Auto) 3.0 1.8-7.7 K/uL Lymphocytes # (Auto) 0.5 L 1.0-4.8 K/uL Monocytes # (Auto) 0.6 0.1-1.0 K/uL Eosinophils # (Auto) 0.22 0.00-0.70 K/uL Basophils # (Auto) 0.04 0.00-0.20 K/uL Absolute Immature Granulocyte (auto 0.03 0-1 K/uL Nucleated Red Blood Cells 0.0 0.0-0.19 % Erythrocyte Sedimentation Rate 114 H 0-30 MM/HR Sodium Level 143 136-145 mmol/L Potassium Level 3.1 L 3.5-5.1 mmol/L Chloride Level 105 101-111 mmol/L Carbon Dioxide Level 29 21-32 mmol/L Blood Urea Nitrogen 7 7-18 mg/dL Creatinine 0.8 0.5-1.0 mg/dL Glomerular Filtration Rate Calc 77 >90 mL/min Random Glucose 106 H 70-105 mg/dL Total Calcium 8.7 8.5-10.1 mg/dL Total Bilirubin 0.4 0.2-1.0 mg/dL Aspartate Amino Transf (AST/SGOT) 14 10-37 U/L Alanine Aminotransferase (ALT/SGPT) 20 12-78 U/L Alkaline Phosphatase 75 50-136 U/L Lactate Dehydrogenase 167 81-234 U/L C-Reactive Protein, Quantitative 19.30 H 0.5-3.0 mg/L Total Protein 6.6 6.0-8.3 g/dL Albumin 2.9 L 3.5-5.0 g/dL Procalcitonin < 0.05 L 0.05-0.5 ng/mL Hemoglobin A1c 6.1 H 4.0-6.0 % Estimated Average Glucose (eAG) 128 H 70-126 mg/dL Urine Color LIGHT-YELLOW YELLOW Urine Appearance CLEAR CLEAR Urine pH 5.5 5.0-8.0 Urine Specific [place] 1.007 1.001-1.031 Urine Protein NEGATIVE NEGATIVE mg/dL Urine Glucose (UA) NEGATIVE NEGATIVE mg/dL Urine Ketones 10 H NEGATIVE mg/dL Urine Occult Blood +- (TRACE) H NEGATIVE Urine Nitrate NEGATIVE NEGATIVE Urine Bilirubin NEGATIVE NEGATIVE mg/dL Urine Urobilinogen 0.2 0.2-1.0 mg/dL Urine Leukocyte Esterase NEGATIVE NEGATIVE Jennifer/uL Urine RBC 0-1 0-1 /HPF Urine WBC 2-5 H 0-1 /HPF Urine Squamous Epithelial Cells RARE 0-2 /HPF Urine Bacteria RARE None Seen /HPF Urine Opiates Screen NEGATIVE NEGATIVE Urine Barbiturates Screen NEGATIVE NEGATIVE Urine Phencyclidine Screen NEGATIVE NEGATIVE Urine Amphetamines Screen NEGATIVE NEGATIVE Urine Benzodiazepines Screen NEGATIVE NEGATIVE Urine Cocaine Screen NEGATIVE NEGATIVE Urine Marijuana (THC) Screen NEGATIVE NEGATIVE White Cell Morphology Comment See comments Prothrombin Time 10.9 9.6-11.6 SEC Prothromb Time International Ratio 0.97 0.85-1.15 Activated Partial Thromboplast Time 28.6 26.3-35.5 SEC Magnesium Level 2.30 1.80-2.40 mg/dL Total Creatine Kinase 41 21-232 U/L Troponin I High Sensitivity 5 4-50 ng/L B-Type Natriuretic Peptide 50 0-100 pg/mL Current Medications Medications (Trade) Dose Ordered Sig/Ata Route PRN Reason Start Time Stop Time Status Last Admin Dose Admin Acetaminophen (TYLenol 325MG TAB) 650 mg Q4H PRN PO MILD PAIN (1-3) 07/07/24 18:00 08/06/24 17:59 Acetaminophen (TYLenol 325MG TAB) 650 mg Q6H PRN PO TEMPERATURE GREATER THAN 101.5 07/07/24 18:00 08/06/24 17:59 Acetaminophen/ Codeine Phosphate (TYLenol-coDEINE TAB) 1 tab Q6H PRN PO MODERATE PAIN (4-6) 07/07/24 18:00 08/06/24 17:59 Acetaminophen/ Codeine Phosphate (TYLenol-coDEINE TAB) 2 tab Q6H PRN PO SEVERE PAIN (7-10) 07/07/24 18:00 07/07/24 18:13 DC Azithromycin 250 ml @ 250 mls/hr Q24H IVPB 07/07/24 18:00 07/17/24 17:59 07/07/24 21:35 250 MLS/HR Ceftriaxone Sodium (ROCEphine 1G INJ) 1 gm Q24H IVPB 07/07/24 22:00 07/17/24 21:59 07/08/24 02:07 1 GM Enoxaparin Sodium (Lovenox) 30 mg DAILY SQ 07/08/24 09:00 08/07/24 08:59 07/08/24 10:22 30 MG Famotidine (Pepcid 20mg Vial) 20 mg DAILY IV 07/08/24 09:00 08/07/24 08:59 07/08/24 10:21 20 MG Hydromorphone HCl (DiLAUDid 1MG INJ) 0.5 mg Q4H PRN IV SEVERE PAIN (7-10) 07/07/24 18:00 07/12/24 17:59 Labetalol HCl (TRANdate 20MG SYG) 10 mg Q6H PRN IV IF SBP GREATER THAN 160 07/07/24 22:00 08/06/24 21:59 Multivitamins Therapeutic (Multivitamin Tablet) 1 tab DAILY PO 07/08/24 09:00 08/07/24 08:59 07/08/24 10:21 1 TAB Ondansetron HCl (zoFRAN 4MG INJ) 4 mg Q6H PRN IV NAUSEA/VOMITING 07/07/24 18:00 08/06/24 17:59 Potassium Chloride 100 ml @ 100 mls/hr AD PRN IV POTASSIUM PROTOCOL 07/08/24 10:00 08/07/24 09:59 Potassium Chloride (K-Dur/Klor-Con 20meq) 20 meq AD PRN PO POTASSIUM PROTOCOL 07/08/24 10:00 08/07/24 09:59 Potassium Chloride (KCl 10% Elixir 20meq/15ml) 20 meq AD PRN PO POTASSIUM PROTOCOL 07/08/24 10:00 08/07/24 09:59 DIAGNOSTICS / RADIOLOGY: [ ] ASSESSMENT: Right lung pneumonia Altered mental status due to pneumonia, psychosis Hypertension Hypokalemia Hyperglycemia Anemia PLAN: Community-acquired pneumonia IV fluids: Normal saline at 100 mL an hour 2 L started on IV Rocephin and azithromycin Blood cultures, sputum cultures, respiratory PCR Incentive spirometry Titrate supplemental oxygen to keep O2 sats above 92% Start on nebulization treatments with DuoNeb Start on Robitussin with codeine every 6 hours when necessary for cough suppression Altered mental status Check B12, TSH and folic acid UDS negative neuro checks q4 fall precautions CT Head - no acute intracranial bleed, atrophy with white blood changes Hypertension Last 24 hours systolic less than 130s Start labetalol 10 mg IV Q6H as needed for systolic bp greater than 160. Hyperglycemia Regular glucose monitoring Start on ISS Hypoglycemia protocol Admit to medical/surgical Heart healthy diet Replete electrolytes as needed Please list and update home medication. Start hypertensive medications now. Add when necessary meds for nausea, vomiting, pain, constipation, insomnia. Continue Lovenox and famotidine for DVT and GI prophylaxis. ATTESTATION BY PHYSICIAN I have seen and examined the patient. I reviewed the documentation, medical decision making, and treatment plan as noted by the resident provider above. I agree with the findings and plan of care. Chau Garsia MD, NIHITHA MD Jul 08, 2024 16:39
[2024-07-08] MEDS ORDERED: MAGNESIUM 2GM PREMIX 50ML 50 ML IV PRN (17:00)
[2024-07-08 23:30] VITALS: BP 137/78; PULSE 71; RESP 20; TEMP 98
[2024-07-09] VITALS (7 sets, daily range): BP systolic 128–165; BP diastolic 67–82; PULSE 62–81; RESP 16–21; TEMP 97.6–98.4; O2SAT 94
[2024-07-09 03:44] LABS: BASOPHILS # (AUTO) 0.04 K/uL (0.00-0.20); BASOPHILS % (AUTO) 0.9 % (0.0-5.0); EOSINOPHILS % (AUTO) 4.5 % (0.0-8.0); HEMATOCRIT 38.5 % (36-48); IMMATURE GRANULOCYTE ABSOLUTE 0.02 K/uL (0-1); LYMPHOCYTES # (AUTO) 0.7 K/uL (1.0-4.8); LYMPHOCYTES % (AUTO) 15.5 % (21.0-51.0); MEAN CORPUSCULAR HEMOGLOBIN 33.4 pg (27.0-33.0); MEAN CORPUSCULAR HGB CONC 32.5 g/dL (32.0-36.0); MEAN CORPUSCULAR VOLUME 102.9 fL (79-99); MONOCYTES # (AUTO) 0.6 K/uL (0.1-1.0); MONOCYTES % (AUTO) 12.5 % (3.0-13.0); NEUTROPHILS # (AUTO) 2.9 K/uL (1.8-7.7); NEUTROPHILS % (AUTO) 66.1 % (40.0-77.0); PLATELET COUNT (AUTO) 303 K/uL (130-400); RED BLOOD CELL COUNT(AUTO) 3.74 MIL/uL (4.00-5.50); RED CELL DISTRIBUTION WIDTH 14.1 % (11.0-15.5); WHITE BLOOD COUNT (AUTO) 4.4 K/uL (4.8-10.8)
[2024-07-09 03:54] LABS: CREATININE 0.9 mg/dL (0.5-1.0); POTASSIUM 3.7 mmol/L (3.5-5.1)
--- NOTE | 2024-07-09 08:17 | HMCIMG ---
CT OF THE CHEST and abdomen without CONTRAST PROTOCOL: Examination is done at 2.5 millimeter volumetric acquisition after contrast administration with Isovue 370, 100 cc IV, without complications. Photography is done at 5 millimeter thick intervals for the thorax. FINDINGS: The thyroid gland is unremarkable. The airway is preserved. The bony and soft tissue structures of the chest wall are unremarkable. The aorta is unremarkable. No mediastinal lymphadenopathy is seen. Post partial pneumonectomy right upper lobe is seen with postoperative atelectasis and loss of volume. No recurrent mass seen at this time. No infiltrates. No evidence of nephro or ureterolithiasis is found. No hydronephrosis or ureteral dilatation is seen. The stomach is unremarkable. There is no evidence of gastric dilatation. No blastic thickening is noted to suggest inflammation or tumor. There is no perforation. There is no gastric outlet obstruction. There is no ulceration. The spleen is unremarkable. It is not enlarged. The pancreas shows normal anatomy. It is not fatty replaced. It shows no lesions. The pancreatic duct is not dilated. The gallbladder is unremarkable. It shows no cholelithiasis. The gallbladder wall is normal in thickness. There is no pericholecystic fluid. The is no acute or chronic inflammation noted. The adrenal glands are unremarkable. There is no enlargement. No lesions are noted. The liver is unremarkable. It shows no focal masses. The visualized segments of large and small bowel appear unremarkable. The bony and vascular structures are unremarkable for the patient's age. Impression: Post partial pneumonectomy right upper lobe is seen with postoperative atelectasis and loss of volume. No recurrent mass seen at this time. No infiltrates.
--- NOTE | 2024-07-09 16:22 | PN ---
[facility] PROGRESS NOTE Date of Service: Jul 09, 2024 Time of Service: 16:21 SUBJECTIVE: The patient is a 73 year old female with history of cancer and psychosis presents for evaluation of altered mental status. According to family members, she has experienced bouts of forgetfulness over the past week. 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 Currently patient denies cough, dyspnea, hemomptysis, unexplained weight loss, night sweats, fever, fatigue or lymphadenopathy. Inital lab workup was unremarkable except for BUN of 6 and glucose of 128. Head CT showed no acute intracranial bleed; revealed atrophy with white matter. CXR revealed upper lung pulmonary infiltrates. Patient will be admitted under hospitalist of further treatment and evaluation 07/08/24 He was seen and examined at bedside in ED11. She says she was diagnosed with stage I small-cell lung cancer in November 2021 and the surgery was done but after many months there was lymph node involvement, stage III lung cancer and she had multiple rounds of chemotherapy and radiotherapy done at [facility] [place], [place] and her last one was in May 13, 2024. She started going to [facility] here in [place] and has a PET scan scheduled for 07/11/2024. Currently she denies any chest pain but has cough with sputum, denies shortness of breath or palpitations or dizziness. We will order a CT chest. Her vitals are blood pressure 111/50, pulse rate 63, respiratory rate 20, SpO2 98% on room air and T-max 98.2. Remarkable labs are potassium 3.1, HB A1c 6.1, CRP 98.3 07/09/24 patient was seen and examined. She is much more with it mentally today he was asking intelligent questions. We also had a detailed discussion with hers daughter and . Patient was CT of the head, chest and abdomen was essentially unremarkable. We will continue to monitor her cough and likely discharge tomorrow if she improves REVIEW OF SYSTEMS CONSTITUTIONAL: Denies fevers, chills, or night sweats. No unintentional weight loss reported. NEUROLOGICAL: Denies headache, amaurosis fugax, motor weakness, sensory deficit, vertigo/spinning sensation, gait abnormalities, or tremors. ENT: No hearing loss, otalgia, otorrhea, rhinitis, rhinorrhea, hoarseness, or sore throat. CARDIOVASCULAR: Denies any exertional angina, dyspnea on exertion, orthopnea, paroxysmal nocturnal dyspnea, palpitations, life-threatening arrhythmias, claudication. PULMONARY: Denies any shortness of breath, cough, phlegm/sputum, hemoptysis, pleuritic chest pain. SLEEP: Denies morning headaches, daytime somnolence or napping. Denies difficulty falling asleep, staying asleep, waking from sleep. Denies knowledge of snoring. GASTROINTESTINAL: Denies any type of dysphagia to either liquids or solids. Denies nausea, vomiting, pyrosis, early satiety, abdominal pain, diarrhea, constipation, or changes in stool consistency or caliber. Denies coffee-ground emesis, hematemesis, hematochezia, or melanotic stools. GENITOURINARY: Denies frequency, urgency, nocturia, hematuria or incontinence (Storage/Irritative symptoms.) Low urinary stream, straining to void, urinary intermittency or hesitancy, splitting of the voiding stream, terminal dribbling. ENDOCRINOLOGIC: Denies polyuria, polydipsia, polyphagia or heat/cold intolerances. HEMATOLOGIC: Denies thrombophilia/previous clots, or coagulopathy/bleeding disorders. ONCOLOGIC: Denies personal history of malignancy. DERMATOLOGIC: Denies rashes or pruritus. PSYCHIATRIC: Denies any suicidal or homicidal ideation. Denies hallucinations. PHYSICAL EXAM GENERAL APPEARANCE: The patient is awake, alert, and oriented, in no acute cardiopulmonary distress. NEUROLOGICAL: Cranial nerves II-XII grossly intact. Motor is 5/5 in bilateral upper and lower extremities proximal to distal. No sensory deficits. HEENT: Face is symmetric. Pupils are equal and reactive. Extraocular movements are intact. NECK: Supple. No JVD. No thyromegaly. No submental, submandibular, pre- /postauricular, occipital or supraclavicular lymphadenopathy. CHEST: Normal chest expansion. No Telemetry. LUNGS: Absence of any rales, rhonchi or any wheezing. CARDIOVASCULAR: Regular. S1 and S2 normal. No appreciable rubs, murmurs or gallops. ABDOMEN: Soft, nontender, and nondistended. There is no rebound, voluntary guarding, or rigidity. : Deferred. No [place]. EXTREMITIES: Non-edematous and not cyanotic. No clubbing. Good capillary refill. SKIN: No skin breakdown. Vital Signs (last 8hr) Date Time Temp Pulse Resp B/P (MAP) Pulse Ox O2 Delivery O2 Flow Rate FiO2 07/09/24 12:00 97.9 62 16 132/78 96 Room Air 21 07/09/24 09:12 94 Room Air* 0 21 LABS: Laboratory: Test 07/09/24 03:15 07/08/24 06:18 07/07/24 19:53 Range/Units White Blood Count 4.4 L 4.8-10.8 K/uL Red Blood Count 3.74 L 4.00-5.50 MIL/uL Hemoglobin 12.5 12.0-16.0 g/dL Hematocrit 38.5 36-48 % Mean Corpuscular Volume 102.9 H 79-99 fL Mean Corpuscular Hemoglobin 33.4 H 27.0-33.0 pg Mean Corpuscular Hemoglobin Concent 32.5 32.0-36.0 g/dL Red Cell Distribution Width 14.1 11.0-15.5 % Platelet Count 303 130-400 K/uL Mean Platelet Volume 9.7 7.5-10.5 fL Immature Granulocyte % (Auto) 0.5 0-1 % Neutrophils (%) (Auto) 66.1 40.0-77.0 % Lymphocytes (%) (Auto) 15.5 L 21.0-51.0 % Monocytes (%) (Auto) 12.5 3.0-13.0 % Eosinophils (%) (Auto) 4.5 0.0-8.0 % Basophils (%) (Auto) 0.9 0.0-5.0 % Neutrophils # (Auto) 2.9 1.8-7.7 K/uL Lymphocytes # (Auto) 0.7 L 1.0-4.8 K/uL Monocytes # (Auto) 0.6 0.1-1.0 K/uL Eosinophils # (Auto) 0.20 0.00-0.70 K/uL Basophils # (Auto) 0.04 0.00-0.20 K/uL Absolute Immature Granulocyte (auto 0.02 0-1 K/uL Nucleated Red Blood Cells 0.0 0.0-0.19 % Sodium Level 145 136-145 mmol/L Potassium Level 3.7 3.5-5.1 mmol/L Chloride Level 109 101-111 mmol/L Carbon Dioxide Level 29 21-32 mmol/L Blood Urea Nitrogen 6 L 7-18 mg/dL Creatinine 0.9 0.5-1.0 mg/dL Glomerular Filtration Rate Calc 67 >90 mL/min Random Glucose 134 H 70-105 mg/dL Total Calcium 8.8 8.5-10.1 mg/dL Erythrocyte Sedimentation Rate 114 H 0-30 MM/HR Total Bilirubin 0.4 0.2-1.0 mg/dL Aspartate Amino Transf (AST/SGOT) 14 10-37 U/L Alanine Aminotransferase (ALT/SGPT) 20 12-78 U/L Alkaline Phosphatase 75 50-136 U/L Lactate Dehydrogenase 167 81-234 U/L C-Reactive Protein, Quantitative 19.30 H 0.5-3.0 mg/L Total Protein 6.6 6.0-8.3 g/dL Albumin 2.9 L 3.5-5.0 g/dL Procalcitonin < 0.05 L 0.05-0.5 ng/mL Hemoglobin A1c 6.1 H 4.0-6.0 % Estimated Average Glucose (eAG) 128 H 70-126 mg/dL Current Medications Medications (Trade) Dose Ordered Sig/Ata Route PRN Reason Start Time Stop Time Status Last Admin Dose Admin Acetaminophen (TYLenol 325MG TAB) 650 mg Q4H PRN PO MILD PAIN (1-3) 07/07/24 18:00 08/06/24 17:59 Acetaminophen (TYLenol 325MG TAB) 650 mg Q6H PRN PO TEMPERATURE GREATER THAN 101.5 07/07/24 18:00 08/06/24 17:59 Acetaminophen/ Codeine Phosphate (TYLenol-coDEINE TAB) 1 tab Q6H PRN PO MODERATE PAIN (4-6) 07/07/24 18:00 08/06/24 17:59 Acetaminophen/ Codeine Phosphate (TYLenol-coDEINE TAB) 2 tab Q6H PRN PO SEVERE PAIN (7-10) 07/07/24 18:00 07/07/24 18:13 DC Azithromycin 250 ml @ 250 mls/hr Q24H IVPB 07/07/24 18:00 07/17/24 17:59 07/08/24 17:55 250 MLS/HR Ceftriaxone Sodium (ROCEphine 1G INJ) 1 gm Q24H IVPB 07/07/24 22:00 07/17/24 21:59 07/08/24 22:43 1 GM Enoxaparin Sodium (Lovenox) 30 mg DAILY SQ 07/08/24 09:00 08/07/24 08:59 07/09/24 08:24 30 MG Famotidine (Pepcid 20mg Vial) 20 mg DAILY IV 07/08/24 09:00 08/07/24 08:59 07/09/24 08:24 20 MG Hydromorphone HCl (DiLAUDid 1MG INJ) 0.5 mg Q4H PRN IV SEVERE PAIN (7-10) 07/07/24 18:00 07/12/24 17:59 Labetalol HCl (TRANdate 20MG SYG) 10 mg Q6H PRN IV IF SBP GREATER THAN 160 07/07/24 22:00 08/06/24 21:59 Magnesium Sulfate 50 ml @ 0 mls/hr PROTOCOL PRN IV MAGNESIUM PROTOCOL 07/08/24 17:00 08/07/24 16:59 Multivitamins Therapeutic (Multivitamin Tablet) 1 tab DAILY PO 07/08/24 09:00 08/07/24 08:59 07/09/24 08:24 1 TAB Ondansetron HCl (zoFRAN 4MG INJ) 4 mg Q6H PRN IV NAUSEA/VOMITING 07/07/24 18:00 08/06/24 17:59 Potassium Chloride 100 ml @ 100 mls/hr AD PRN IV POTASSIUM PROTOCOL 07/08/24 10:00 08/07/24 09:59 Potassium Chloride (K-Dur/Klor-Con 20meq) 20 meq AD PRN PO POTASSIUM PROTOCOL 07/08/24 10:00 08/07/24 09:59 07/08/24 16:39 20 MEQ Potassium Chloride (KCl 10% Elixir 20meq/15ml) 20 meq AD PRN PO POTASSIUM PROTOCOL 07/08/24 10:00 08/07/24 09:59 DIAGNOSTICS / RADIOLOGY: [ ] ASSESSMENT: Right lung pneumonia Altered mental status due to pneumonia, psychosis Hypertension Hypokalemia Hyperglycemia Anemia PLAN: Community-acquired pneumonia IV fluids: Normal saline at 100 mL an hour 2 L started on IV Rocephin and azithromycin Blood cultures, sputum cultures, respiratory PCR Incentive spirometry Titrate supplemental oxygen to keep O2 sats above 92% Start on nebulization treatments with DuoNeb Start on Robitussin with codeine every 6 hours when necessary for cough suppression Altered mental status Check B12, TSH and folic acid UDS negative neuro checks q4 fall precautions CT Head - no acute intracranial bleed, atrophy with white blood changes Hypertension Last 24 hours systolic less than 130s Start labetalol 10 mg IV Q6H as needed for systolic bp greater than 160. Hyperglycemia Regular glucose monitoring Start on ISS Hypoglycemia protocol Admit to medical/surgical Heart healthy diet Replete electrolytes as needed Please list and update home medication. Start hypertensive medications now. Add when necessary meds for nausea, vomiting, pain, constipation, insomnia. Continue Lovenox and famotidine for DVT and GI prophylaxis. KEVIN BYRD MD Jul 09, 2024 16:22
[2024-07-10 02:55] VITALS: BP 154/83; PULSE 73; RESP 18; TEMP 98.1
[2024-07-10 08:03] VITALS: BP 155/80; PULSE 70; RESP 18; TEMP 98.1
[2024-07-10 10:06] VITALS: O2SAT 100
[2024-07-10 11:29] VITALS: BP 150/78; PULSE 72; RESP 20; TEMP 98.5
--- NOTE | 2024-07-10 13:14 | NUR ---
DC PLAN PATIENT LIVES WITH SPOUSE. INDEPENDENT ABLE TO PERFORM ADL'S. PATIENT HAS NO SERVICES OR DME'S. FEELS SAFE TO RETURN HOME. SAID THAT SHE IS THINKING ABOUT BECOMING A [employer]. SAYS THAT SHE LIVES IN A AND THEY GO [facility] TO [facility] SEEING THINGS. SAID HAS AN APPOINTMENT WITH A CANCER DOCTOR FOR A PET SCAN TO CHECK AND SEE HOW HER CANCER IS DOING WAS HER [place] IS BETTER THEN WILL GO BACK TO [place] TO GET CHEMO TREATMENT. Addendum: 07/10/24 at 1339 by TAQUERIA THOMAS RN CM Amended: Links added.
[2024-07-10] MEDS ORDERED: LORazepam 2 MG/ML 1 ML VIAL IVP ONE ×2 (14:13→14:30)
[2024-07-10] MEDS ORDERED: hydroMORPHone 0.5 MG SYG (0.5MG/0.5ML) IVP PRN (14:30)
[2024-07-10] MEDS: LACTULOSE 20 GM/30 ML UDCUP PO ONE (15:47)
--- NOTE | 2024-07-10 15:48 | NUR ---
D/C INSTRUCTIONS PROVIDED. IV REMOVED
--- NOTE | 2024-07-10 16:13 | DS ---
Discharge Summary Hospital Course Summary: The patient is a 73 year old female with history of cancer and psychosis presents for evaluation of altered mental status. According to family members, she has experienced bouts of forgetfulness over the past week. Her daughter became particularly concerned due tot he patient's history of malignant neoplas ia of the lungs and lymphnode. Currently patient denies cough, dyspnea, hemomptysis, unexplained weight loss, night sweats, fever, fatigue or lymphadenopathy. Inital lab workup was unremarkable except for BUN of 6 and glucose of 128. Head CT showed no acute intracranial bleed; revealed atrophy with white matter. CXR revealed upper lung pulmonary infiltrates. Patient will be admitted under hospitalist of further treatment and evaluation. She improved clinically that some hydration and cultures remain negative. She was discharged on doxycycline. She was very anxious to go home and was discharged is stable condition Assessment/Plan: ASSESSMENT: Right lung pneumonia Altered mental status due to pneumonia, psychosis Hypertension Hypokalemia Hyperglycemia Anemia PLAN: Community-acquired pneumonia IV fluids: Normal saline at 100 mL an hour 2 L started on IV Rocephin and azithromycin Blood cultures, sputum cultures, respiratory PCR Incentive spirometry Titrate supplemental oxygen to keep O2 sats above 92% Start on nebulization treatments with DuoNeb Start on Robitussin with codeine every 6 hours when necessary for cough suppression Altered mental status Check B12, TSH and folic acid UDS negative neuro checks q4 fall [address] Head - no acute intracranial bleed, atrophy with white blood changes Hypertension Last 24 hours systolic less than 130s Start labetalol 10 mg IV Q6H as needed for systolic bp greater than 160. Hyperglycemia Regular glucose monitoring Start on ISS Hypoglycemia protocol Admit to medical/surgical Heart healthy diet Replete electrolytes as needed Please list and update home medication. Start hypertensive medications now. Add when necessary meds for nausea, vomiting, pain, constipation, insomnia. Continue Lovenox and famotidine for DVT and GI prophylaxis. Home Medications: Reported Medications Multivitamin (Multi Vitamin Daily) 1 Each Tablet, 1 TAB PO DAILY for 30 Days, #30 TAB 0 Refills 07/07/24 Time spent arranging discharge: 31-60 minutes KEVIN BYRD MD Jul 10, 2024 16:13
== END 2024-07-10 16:20 | disposition home or self-care (01) | DRG 195 ==
LOC: EDH 09:52 → EDHIP 14:07 → 4AH 07-08 23:17
PROVIDERS: ADMIT Internal Medicine; ATTEND Internal Medicine
DX: J18.9 Pneumonia, unspecified organism (principal); I10 Essential (primary) hypertension; F29 Unspecified psychosis not due to a substance or known physiological condition; E87.6 Hypokalemia; D64.9 Anemia, unspecified; R73.9 Hyperglycemia, unspecified; Z85.118 Personal history of other malignant neoplasm of bronchus and lung; Z87.891 Personal history of nicotine dependence; Z91.041 Radiographic dye allergy status; Z79.899 Other long term (current) drug therapy
CPT/HCPCS: 36415; 70450; 71045; 71250; 74150; 80048; 80053; 80305; 81001; 82550; 83036; 83615; 83735; 83880; 84145; 84484; 85025; 85610; 85651; 85730; 86140; 87040; 87071; 87086; 87186; 87205; 93005; 99285; G0378; J0456; J0696; J1650; J3480; J3490